=== PATIENT | female | born 2000 | race Caucasian/White ===

== ENCOUNTER 2025-01-13 07:12 | Inpatient (IN) | payer OTHER ==
[~2025-01-13] VITALS: Ht 160 cm; Wt 78.6 kg
[2025-01-13] MEDS ORDERED: FentaNYL Citrate 50 MCG/ML 2 ML Injection IV PRN (07:25)
[2025-01-13] MEDS ORDERED: OXYTOCIN/RINGER'S LACTATE 500 ML IV PRN ×2 (07:25→08:35)
[2025-01-13] MEDS ORDERED: Carboprost Tromethamine 250 MCG/ML 1ML Amp IM PRN (08:35)
[2025-01-13] MEDS ORDERED: Tranexamic Acid 100 ML IV SCH (08:35)
[2025-01-13] MEDS ORDERED: Oxytocin 10 Unit / ML Vial IM PRN (08:35)
[2025-01-13] MEDS ORDERED: Ondansetron HCl 2 MG / ML 2ML Vial IV PRN (08:35)
[2025-01-13] MEDS ORDERED: Methylergonovine Maleate 0.2MG / ML 1ML Amp IM PRN (08:35)
[2025-01-13 08:43] LABS: BASOPHILS ABSOLUTE AUTO 0.07 K/mm3 (0.00-0.23); BASOPHILS PERCENT AUTO 0 % (0-2); EOSINOPHILS ABSOLUTE AUTO 0.19 K/mm3 (0.00-0.68); EOSINOPHILS PERCENT AUTO 1 % (0-6); Hematocrit 32.3 % (33.0-51.0); Hemoglobin 10.2 g/dL (11.5-16.0); IMMATURE GRAN ABSOLUTE AUTO 0.08 K/mm3 (0.00-0.10); IMMATURE GRAN PERCENT AUTO 1 % (0-1); LYMPHOCYTES ABSOLUTE AUTO 3.91 K/mm3 (0.84-5.20); LYMPHOCYTES PERCENT AUTO 24 % (21-46); MONOCYTES ABSOLUTE AUTO 1.00 K/mm3 (0.16-1.47); MONOCYTES PERCENT AUTO 6 % (4-13); Mean Corpuscular HGB Conc 31.6 g/dL (31.5-36.5); Mean Corpuscular Volume 70 fL (80-100); NEUTROPHILS ABSOLUTE AUTO 11.12 K/mm3 (1.96-9.15); NEUTROPHILS PERCENT AUTO 68 % (41-73); NRBC ABSOLUTE 0.00 K/mm3 (0.00-0.02); NRBC Auto 0.0 /100 WBC (0.0-0.2); Platelet Count 353 K/mm3 (150-400); RDW Coefficient Variation 15.7 % (11.7-14.2); RDW Standard Deviation 38.6 fL (35.1-46.3)
[2025-01-13 08:45] VITALS: BP 111/65
[2025-01-13] MEDS ORDERED: FentaNYL 2mcg/ml-Bup 0.1% Epd 250 ML EPI PRN (08:55)
[2025-01-13] MEDS ORDERED: ePHEDrine Sulfate 50 MG/ML 1ML Injection XX PRN (08:55)
[2025-01-13 12:05] VITALS: BP 123/84
[2025-01-13 17:59] VITALS: BP 109/59
[2025-01-13 19:33] VITALS: BP 110/54
[2025-01-14] VITALS (12 sets, daily range): BP systolic 111–128; BP diastolic 56–73
[2025-01-14] MEDS ORDERED: FLU VACC TS2025-26(6MOS UP)/PF 45 MCG/0.5 ML SYRINGE IM SCH (01:15)
[2025-01-14] MEDS ORDERED: Benzocaine Topical Anesthetic Spray 60GM TOP PRN (01:15)
[2025-01-14] MEDS ORDERED: OXYTOCIN/RINGER'S LACTATE 500 ML IV SCH (01:15)
[2025-01-14] MEDS ORDERED: Witch Hazel/Glycerin PADS TOP PRN (01:15)
[2025-01-14] MEDS ORDERED: Methylergonovine Maleate 0.2MG / ML 1ML Amp IM PRN (01:20)
[2025-01-14] MEDS ORDERED: Ketorolac Tromethamine 30mg Vial IV PRN (01:55)
[2025-01-14 05:24] LABS: BASOPHILS ABSOLUTE AUTO 0.09 K/mm3 (0.00-0.23); BASOPHILS PERCENT AUTO 0 % (0-2); EOSINOPHILS ABSOLUTE AUTO 0.00 K/mm3 (0.00-0.68); EOSINOPHILS PERCENT AUTO 0 % (0-6); Hematocrit 28.0 % (33.0-51.0); Hemoglobin 9.0 g/dL (11.5-16.0); IMMATURE GRAN ABSOLUTE AUTO 0.55 K/mm3 (0.00-0.10); IMMATURE GRAN PERCENT AUTO 1 % (0-1); LYMPHOCYTES ABSOLUTE AUTO 2.22 K/mm3 (0.84-5.20); LYMPHOCYTES PERCENT AUTO 6 % (21-46); MONOCYTES ABSOLUTE AUTO 3.40 K/mm3 (0.16-1.47); MONOCYTES PERCENT AUTO 8 % (4-13); Mean Corpuscular HGB Conc 32.1 g/dL (31.5-36.5); Mean Corpuscular Volume 70 fL (80-100); NEUTROPHILS ABSOLUTE AUTO 34.08 K/mm3 (1.96-9.15); NEUTROPHILS PERCENT AUTO 85 % (41-73); NRBC ABSOLUTE 0.00 K/mm3 (0.00-0.02); NRBC Auto 0.0 /100 WBC (0.0-0.2); Platelet Count 332 K/mm3 (150-400); RDW Coefficient Variation 15.8 % (11.7-14.2); RDW Standard Deviation 39.0 fL (35.1-46.3)
[2025-01-14] MEDS ORDERED: Ketorolac Tromethamine 30mg Vial IV SCH (06:00)
[2025-01-14] MEDS ORDERED: Prenatal Vit/FE Fumarate/FA 1 Tab PO SCH (09:00)
[2025-01-14] MEDS ORDERED: CeFAZolin Sodium 1,000 MG in NS 50 ML IV SCH (18:00)
[2025-01-14 18:32] LABS: BASOPHILS ABSOLUTE AUTO 0.09 K/mm3 (0.00-0.23); BASOPHILS PERCENT AUTO 0 % (0-2); EOSINOPHILS ABSOLUTE AUTO 0.06 K/mm3 (0.00-0.68); EOSINOPHILS PERCENT AUTO 0 % (0-6); Hematocrit 28.3 % (33.0-51.0); Hemoglobin 9.0 g/dL (11.5-16.0); IMMATURE GRAN ABSOLUTE AUTO 0.31 K/mm3 (0.00-0.10); IMMATURE GRAN PERCENT AUTO 1 % (0-1); LYMPHOCYTES ABSOLUTE AUTO 4.29 K/mm3 (0.84-5.20); LYMPHOCYTES PERCENT AUTO 15 % (21-46); MONOCYTES ABSOLUTE AUTO 2.00 K/mm3 (0.16-1.47); MONOCYTES PERCENT AUTO 7 % (4-13); Mean Corpuscular HGB Conc 31.8 g/dL (31.5-36.5); Mean Corpuscular Volume 72 fL (80-100); NEUTROPHILS ABSOLUTE AUTO 22.08 K/mm3 (1.96-9.15); NEUTROPHILS PERCENT AUTO 77 % (41-73); NRBC ABSOLUTE 0.00 K/mm3 (0.00-0.02); NRBC Auto 0.0 /100 WBC (0.0-0.2); Platelet Count 329 K/mm3 (150-400); RDW Coefficient Variation 16.0 % (11.7-14.2); RDW Standard Deviation 40.1 fL (35.1-46.3)
[2025-01-15 02:12] VITALS: BP 108/55
[2025-01-15 05:21] VITALS: BP 115/67
[2025-01-15 05:27] LABS: BASOPHILS ABSOLUTE AUTO 0.07 K/mm3 (0.00-0.23); BASOPHILS PERCENT AUTO 0 % (0-2); EOSINOPHILS ABSOLUTE AUTO 0.12 K/mm3 (0.00-0.68); EOSINOPHILS PERCENT AUTO 1 % (0-6); Hematocrit 28.8 % (33.0-51.0); Hemoglobin 8.9 g/dL (11.5-16.0); IMMATURE GRAN ABSOLUTE AUTO 0.16 K/mm3 (0.00-0.10); IMMATURE GRAN PERCENT AUTO 1 % (0-1); LYMPHOCYTES ABSOLUTE AUTO 4.37 K/mm3 (0.84-5.20); LYMPHOCYTES PERCENT AUTO 21 % (21-46); MONOCYTES ABSOLUTE AUTO 1.50 K/mm3 (0.16-1.47); MONOCYTES PERCENT AUTO 7 % (4-13); Mean Corpuscular HGB Conc 30.9 g/dL (31.5-36.5); Mean Corpuscular Volume 72 fL (80-100); NEUTROPHILS ABSOLUTE AUTO 14.63 K/mm3 (1.96-9.15); NEUTROPHILS PERCENT AUTO 70 % (41-73); NRBC ABSOLUTE 0.00 K/mm3 (0.00-0.02); NRBC Auto 0.0 /100 WBC (0.0-0.2); Platelet Count 315 K/mm3 (150-400); RDW Coefficient Variation 16.2 % (11.7-14.2); RDW Standard Deviation 40.8 fL (35.1-46.3)
[2025-01-15 07:40] VITALS: BP 117/56
--- NOTE | 2025-01-15 09:50 | NUR ---
0925 - SPOKE WITH . RN TO GIVE 3RD DOSE OF ANCEF AND THEN PATIENT MAY D/C HOME
[2025-01-15 11:05] VITALS: BP 144/60
--- NOTE | 2025-01-15 11:16 | NUR ---
ANTIBIOTICS GIVEN AND IV REMOVED, D/C TEACHING COMPLETED, AND FOLLOW UP SCHEDULED. PT D/C HOME WITH .
--- NOTE | 2025-01-15 11:30 | NUR ---
PT DECLINES FLU VACCINE AT THIS TIME
== END 2025-01-15 11:43 | disposition home or self-care (01) | DRG 807 ==
LOC: OBS 07:12 → BC 07:18 → OBS 07:26 → BC 07:28
PROVIDERS: ADMIT Obstetrics & Gynecology
PROC: 10E0XZZ Delivery of Products of Conception, External Approach (ICD-10-PCS; principal; 2025-01-14)
PROC: 0HQ9XZZ Repair Perineum Skin, External Approach (ICD-10-PCS; 2025-01-14)
PROC: 3E03329 Introduction of Other Anti-infective into Peripheral Vein, Percutaneous Approach (ICD-10-PCS; 2025-01-14)
DX: O48.0 Post-term pregnancy (principal); Z37.0 Single live birth; O70.0 First degree perineal laceration during delivery; D72.829 Elevated white blood cell count, unspecified; O90.89 Other complications of the puerperium, not elsewhere classified; O99.334 Smoking (tobacco) complicating childbirth; F17.290 Nicotine dependence, other tobacco product, uncomplicated
CPT/HCPCS: 36415; 85025; 86850; 86900; 86901; A9270; J0690; J1885; J2590; J3010